=== PATIENT | female | born 1930 | race African-American/Black ===

== ENCOUNTER 2018-02-01 15:09 | Emergency (ER) | payer OTHER ==
[~2018-02-01] VITALS: Ht 152.4 cm; Wt 51.0 kg
[2018-02-01 19:46] VITALS: BP 133/70
== END 2018-02-01 19:46 | disposition home or self-care (01) ==
LOC: EME 15:09
DX: M25.552 Pain in left hip (principal); R51 Headache; M54.2 Cervicalgia; W18.30XA Fall on same level, unspecified, initial encounter; R11.0 Nausea; I51.7 Cardiomegaly; M85.88 Other specified disorders of bone density and structure, other site; M47.892 Other spondylosis, cervical region; Z72.0 Tobacco use
CPT/HCPCS: 70450; 71045; 72125; 73501; 73502; 99281; 99284